=== PATIENT | male | born 1955 | race Caucasian/White ===

== ENCOUNTER 2017-12-28 16:15 | Emergency (ER) | payer MEDICAID, OTHER ==
[~2017-12-28] VITALS: Ht 175.3 cm; Wt 81.6 kg
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
[2017-12-28] MEDS ORDERED: TDAP [DIPH/PERTUSSIS/TET] 0.5 ML VIAL IM ONE ×2 (17:00→17:08)
--- NOTE | 2017-12-28 17:45 | NUR ---
[facility] AT BED SIDE FOR REPORT
--- NOTE | 2017-12-28 20:01 | NUR ---
PATIENT IS RESTING IN ER BED, NO DISTRESS NOTED, WILL CONTINUE TO MONITOR
[2017-12-28] MEDS ORDERED: LIDOCAINE 1% INJ 50 ML MDV IJ ONE (22:31)
[2017-12-28 23:07] VITALS: BP 148/79
--- NOTE | 2017-12-28 23:08 | NUR ---
[facility] AT BED SIDE FOR SUTURE PLACEMENT; 3 SUTURES PLACED ON NOSE LACERATION
--- NOTE | 2017-12-28 23:08 | NUR ---
Patient discharged to home in stable condition. Written and verbal after care instructions given. Patient verbalizes understanding of instruction. PT ambulatory with a steady gait VITAL SIGNS WITHIN NORMAL LIMITS.
== END 2017-12-28 23:09 | disposition home or self-care (01) ==
LOC: ER 16:17
DX: S02.2XXA Fracture of nasal bones, initial encounter for closed fracture (principal); J44.9 Chronic obstructive pulmonary disease, unspecified; F17.200 Nicotine dependence, unspecified, uncomplicated; Z86.19 Personal history of other infectious and parasitic diseases; Y04.8XXA Assault by other bodily force, initial encounter; Y93.89 Activity, other specified; Y92.89 Other specified places as the place of occurrence of the external cause; Y99.8 Other external cause status
CPT/HCPCS: 70450; 70486; 71045; 72125; 90471; 90715; 99284; A4606; A6402; Z7610